=== PATIENT | female | born 1990 | race Caucasian/White ===

== ENCOUNTER 2018-07-02 12:55 | Emergency (ER) | payer MEDICAID, OTHER ==
[2018-07-02 13:29] LABS: Bilirubin Negative (Negative); Blood, Urine Negative (Negative); Clarity CLEAR (Clear); Glucose, Urine (Dipstick) Negative (Negative); Leukocyte Negative (Negative); Nitrite Negative (Negative); Pregnancy Test - Urine (BHCG) POSITIVE (Negative); Protein, Urine (Dipstick) Negative (Neg-Trace); Specific Gravity, Urine 1.018 (1.002-1.036)
[2018-07-02 13:30] LABS: Pregu Control Background? CLEAR/WHITE (CLR/WHITE); Pregu Control Bar Appear? YES (CONTROL BAR); Specific Gravity 1.018 (1.002-1.036)
[2018-07-02 13:39] LABS: #Basophils 0.1 thou/uL (0.0-0.2); #Eosinphils 0.2 thou/uL (0.0-0.7); #Lymphocytes 1.9 thou/uL (1.20-3.40); #Monocytes 0.5 thou/uL (0.11-0.59); %Basophils 0.8 % (0.0-1.0); %Eosinophils 2.4 % (0.0-10.0); %Lymphocytes 19.6 % (21.0-51.0); %Monocytes 5.5 % (0.0-10.0); %Neutrophils 71.7 % (42.0-75.0); Hemoglobin 15.3 g/dL (12.0-16.0); Mean Corpuscular HGB CONC 32.4 g/dL (32.0-36.0); Mean Corpuscular Hemoglobin 30.6 pg (27.0-31.0); Mean Corpuscular Volume 94.3 fL (78.0-98.0); Mean Platelet Volume 8.4 fL (7.4-10.4); Platelet Count 250 thou/uL (130-400); RBC Distribution Width 11.9 % (11.5-14.5); Red Blood Cell (RBC) Count 4.99 mill/uL (4.20-5.40); White Blood Cell (WBC) Count 9.8 thou/uL (4.8-10.8)
--- NOTE | 2018-07-02 14:16 | ULT ---
PELVIC ULTRASOUND: COMPARISON: None. HISTORY: female with vaginal bleeding. TECHNIQUE: Multiplanar, soria scale, and color Doppler images were obtained in a transabdominal and transvaginal pelvic ultrasound. Spectral analysis of the Doppler waveforms was performed. FINDINGS: There is a tiny hypoechoic structure within the endometrium which could represent a very early gestat ional sac. This has a mean sac diameter of 0.51 cm which would estimated gestational age at 5 weeks 2 days. No pole or yolk sac is seen within this possible gestational sac. No free fluid is seen in the pelvis. Both ovaries are normal in size and appearance and demonstrate normal internal flow. A corpus luteum cyst is seen in the right ovary. IMPRESSION: Likely early intrauterine . Recommend following HCG values to ensure that a viable pregnanc y is present. POS: HERIBERTO
== END 2018-07-02 14:35 | disposition home or self-care (01) ==
LOC: ERS 12:55
DX: O20.0 Threatened abortion (principal); O99.331 Smoking (tobacco) complicating pregnancy, first trimester; Z3A.01 Less than 8 weeks gestation of pregnancy
CPT/HCPCS: 36415; 76856; 81003; 81025; 84702; 85025

== ENCOUNTER 2018-07-10 11:35 | Outpatient (CLI) | payer MEDICAID | END 2018-07-10 11:36 | disposition home or self-care (01) | LOC: LAB 11:35 | PROVIDERS: ATTEND Physician Assistant Medical | DX: R19.7 Diarrhea, unspecified (principal) | CPT/HCPCS: 87045; 87046; 87177; 87449; 87899 ==

== ENCOUNTER 2019-07-16 20:28 | Emergency (ER) | payer MEDICAID ==
[2019-07-16 20:53] LABS: #Basophils 0.2 thou/uL (0.0-0.2); #Eosinphils 0.4 thou/uL (0.0-0.7); #Lymphocytes 3.4 thou/uL (1.20-3.40); #Monocytes 0.4 thou/uL (0.11-0.59); #Neutrophils 3.5 thou/uL (1.40-6.50); %Eosinophils 5.3 % (0.0-10.0); %Lymphocytes 43.4 % (21.0-51.0); %Monocytes 4.4 % (0.0-10.0); %Neutrophils 44.8 % (42.0-75.0); Hemoglobin 14.6 g/dL (12.0-16.0); Mean Corpuscular HGB CONC 33.8 g/dL (32.0-36.0); Mean Corpuscular Hemoglobin 32.9 pg (27.0-31.0); Mean Corpuscular Volume 97.3 fL (78.0-98.0); Platelet Count 242 thou/uL (130-400); RBC Distribution Width 12.6 % (11.5-14.5); Red Blood Cell (RBC) Count 4.45 mill/uL (4.20-5.40); White Blood Cell (WBC) Count 7.9 thou/uL (4.8-10.8)
[2019-07-16 21:05] LABS: Bilirubin Negative (Negative); Blood, Urine Negative (Negative); Clarity Clear (Clear); Glucose, Urine (Dipstick) Normal (Negative); Leukocyte Negative Leu/uL (Negative); Nitrite Negative (Negative); Protein, Urine (Dipstick) Negative (Neg-Trace); Urobilinogen Normal mg/dL (Less than 2)
[2019-07-16 21:26] LABS: BHCG - Serum POSITIVE (NEGATIVE); Pregs Control Background? CLEAR/WHITE (CLR/WHITE); Pregs Control Bar Appear? YES (CONTROL BAR)
--- NOTE | 2019-07-16 23:13 | ULT ---
Obstetric sonogram transabdominal imaging with duplex evaluation HISTORY: Pelvic pain. Early . FINDINGS: Urinary bladder is incompletely distended. Gestational sac within the endometrial cavity co ntains a pole correlating with 6 weeks 4 days gestational age. No heart tones visible. Gestational sac size correlates with 8 weeks 1 day. No free fluid in the pelvis. Each ovary has normal appearance and demonstrates good color and spectra l Doppler flow. IMPRESSION: Single intrauterine gestational sac with pole correlating with 6 weeks 4 days gesta tional age. No heart motion demonstrated. Please correlate with expected clinical age and beta hCG levels.
== END 2019-07-16 23:53 | disposition home or self-care (01) ==
LOC: ERS 20:28
DX: O20.0 Threatened abortion (principal); O99.89 Other specified diseases and conditions complicating pregnancy, childbirth and the puerperium; R19.7 Diarrhea, unspecified; Z87.891 Personal history of nicotine dependence; Z3A.01 Less than 8 weeks gestation of pregnancy
CPT/HCPCS: 36415; 76856; 81003; 84702; 84703; 85025; 86850; 86900; 86901

== ENCOUNTER 2019-07-18 20:47 | Emergency (ER) | payer MEDICAID | END 2019-07-18 22:26 | disposition home or self-care (01) | LOC: ERS 20:47 | DX: O03.4 Incomplete spontaneous abortion without complication (principal); Z87.891 Personal history of nicotine dependence | CPT/HCPCS: 99281 ==

== ENCOUNTER 2020-04-15 05:08 | Day surgery (SDC) | payer MEDICAID, OTHER ==
[2020-04-15 05:48] LABS: #Basophils 0.1 thou/uL (0.0-0.2); #Eosinphils 0.3 thou/uL (0.0-0.7); #Lymphocytes 1.8 thou/uL (1.20-3.40); #Monocytes 0.6 thou/uL (0.11-0.59); #Neutrophils 16.4 thou/uL (1.40-6.50); %Basophils 0.3 % (0.0-1.0); %Eosinophils 1.6 % (0.0-10.0); %Lymphocytes 9.3 % (21.0-51.0); %Monocytes 3.1 % (0.0-10.0); %Neutrophils 85.7 % (42.0-75.0); Hemoglobin 15.6 g/dL (12.0-16.0); Mean Corpuscular HGB CONC 33.8 g/dL (32.0-36.0); Mean Corpuscular Hemoglobin 32.2 pg (27.0-31.0); Mean Corpuscular Volume 95.4 fL (78.0-98.0); Mean Platelet Volume 8.7 fL (7.4-10.4); Platelet Count 207 thou/uL (130-400); RBC Distribution Width 11.9 % (11.5-14.5); Red Blood Cell (RBC) Count 4.86 mill/uL (4.20-5.40); White Blood Cell (WBC) Count 19.1 thou/uL (4.8-10.8)
[2020-04-15 06:07] LABS: Bacteria/HPF 1+ HPF (None Seen); Bilirubin Negative (Negative); Blood, Urine 2+ (Negative); Clarity Clear (Clear); Glucose, Urine (Dipstick) Normal (Negative); Ketone, Urine Trace mg/dL (Negative); Leukocyte 500 Leu/uL (Negative); Nitrite Negative (Negative); Protein, Urine (Dipstick) 10 mg/dL (Neg-Trace); Specific Gravity, Urine 1.027 (1.002-1.036); Urobilinogen Normal mg/dL (Less than 2); WBC/HPF 21-50 HPF (0-3); pH, Urine 6.5 (5.0-9.0)
[2020-04-15] MEDS ORDERED: cefTRIAXone\\ROCEPHIN 1 GM VIAL ONE (06:23)
[2020-04-15 07:06] LABS: ALT (SGPT) 10 U/L (8-55); AST (SGOT) 29 U/L (5-34); Alkaline Phosphatase 44 U/L (40-110); Anion Gap 12 mmol/L (10-20); BUN (Urea Nitrogen) 9 mg/dL (7.0-18.7); Bilirubin, Total 0.2 mg/dL (0.2-1.2); Calc. Creatinine Clearance 0 mL/min (70-130); Calcium 7.8 mg/dL (7.8-10.44); Carbon Dioxide 20 mmol/L (22-29); Chloride 108 mmol/L (98-107); Estimated GFR-MDRD Greater than 90; Globulin 3.1 g/dL (2.4-3.5); Glucose 72 mg/dL (70-105); Potassium 4.7 mmol/L (3.5-5.1); Protein, Total 6.1 g/dL (6.0-8.3); Sodium 135 mmol/L (136-145)
[2020-04-15] MEDS ORDERED: Bicitra 30 ML UDCUP ONE (07:32)
[2020-04-15] MEDS ORDERED: Acetaminophen 500 MG TAB PO PRN ×2 (07:40→10:31)
[2020-04-15] MEDS ORDERED: hydrOXYzine Pamoate 25 mg Capsule PO PRN ×2 (07:41→10:36)
[2020-04-15] MEDS ORDERED: Dextrose 5%-Lactated Ringers 1,000 ML IV SCH ×2 (07:45→10:45)
--- NOTE | 2020-04-15 07:47 | ULT ---
PRELIMINARY REPORT/[facility]/EMERGENCY AFTER HOURS PROCEDURE This report was discussed with Melissa Dexter RN by Malcolm Pagan on Apr 15, 2020 06:44:00 RIDDLER OPERATOR. Addendum electronically signed by Malcolm Pagan on April 15, 2020 6:45:01 AM RIDDLER OPERATOR EXAM: US Obstetrical, Complete >14 weeks. CLINICAL HISTORY: HX: VAG BLEEDING, CONTRACTIONS AT 18WKS. TECHNIQUE: Transabdominal imaging of the maternal pelvis and a > 14 week gestation with image documentation. COMPARISON: None provided. FINDINGS: FETUS: There is a single living intrauterine gestation. POSITION: position is vertex. HEART RATE: The heart rate is 149 beats per minute. BIOMETRICS: Based on composite biometry, the estimated gestational age by ultrasound is 18 weeks and 2 days . ANATOMIC SURVEY: The visualized anatomy is unremarkable. PLACENTA: The placenta is located fundal. No sonographic evidence for previa or abruption. AMNIOTIC FLUID: Within normal limits. CERVIX: The cervix appears shortened, measuring up to 1.4 cm in length. IMPRESSION: Single viable intrauterine . The cervix appears shortened, measuring up to 1.4 cm in length. ELECTRONICALLY SIGNED BY: Nancy Ching MD Apr 15, 2020 6:39:17 AM RIDDLER OPERATOR This report is intended for review by the ordering physician only, in accordance of law. If you recei ve this report in error, please call [facility] at [phone]. FINAL REPORT Obstetric sonogram limited 04/15/2020 performed on emergency basis at 0600 hours. HISTORY: Pelvic pain. FINDINGS: Agree with the preliminary report by Dr. Ching from [facility]. Cervix is shortene d at 1.4 cm. Single intrauterine gestation. Estimated gestational age 18 weeks 2 days. Transcribed Date/Time: 04/15/2020 8:27 AM
[2020-04-15] MEDS: Ampicillin/Sulbactam 3 GM in Sodium Chloride 0.9% 100 ML IVPB SCH ×2 (08:18→14:27)
[2020-04-15] MEDS ORDERED: Bupivacaine/Epinephrine 0.25% 30 ML VIAL ONE (09:41)
[2020-04-15] MEDS ORDERED: Ondansetron PF 4 MG/2 ML Vial IVP PRN ×2 (10:31→20:01)
[2020-04-15] MEDS ORDERED: Promethazine HCl 25 MG/ML VIAL IM PRN (10:31)
[2020-04-15] MEDS ORDERED: hydrALAZINE 20 MG/ML VIAL SLOW IVP PRN ×2 (10:31→20:01)
[2020-04-15] MEDS ORDERED: Ampicillin/Sulbactam 3 GM in Sodium Chloride 0.9% 100 ML IVPB SCH (10:45)
[2020-04-15 11:37] LABS: SARS-CoV-2 MS2 Positive; SARS-CoV-2 N Gene Negative; SARS-CoV-2 S Gene Negative; SARS-CoV-2 by NAA Not Detected (NotDetected); SARS-CoV-2 orf1ab Negative
[2020-04-15 11:48] LABS: Hemoglobin 13.3 g/dL (12.0-16.0); Mean Corpuscular HGB CONC 33.4 g/dL (32.0-36.0); Mean Corpuscular Hemoglobin 32.6 pg (27.0-31.0); Mean Corpuscular Volume 97.6 fL (78.0-98.0); Mean Platelet Volume 8.8 fL (7.4-10.4); Platelet Count 186 thou/uL (130-400); RBC Distribution Width 11.9 % (11.5-14.5); Red Blood Cell (RBC) Count 4.07 mill/uL (4.20-5.40); White Blood Cell (WBC) Count 16.7 thou/uL (4.8-10.8)
[2020-04-15 12:31] LABS: HBSAg Index 0.22 S/CO (0-0.99); Hep B Surf Ag Non-Reactive S/CO (NonReactive); Syphilis Antibody Nonreactive (Nonreactive); Syphilis Antibody Index 0.05 S/CO (<1.00 Non-Reactive)
[2020-04-15 15:16] LABS: Amphetamine Not Detected (NotDetected); Barbiturates Screen Not Detected (NotDetected); Benzodiazepine Screen Not Detected (NotDetected); Cocaine Metabolite Screen Not Detected (NotDetected); Medtox Control Line Valid? VALID (VALID); Medtox Reader # READER 1; Methadone Not Detected (NotDetected); Methamphetamine Not Detected (NotDetected); Opiate Screen Not Detected (NotDetected); Oxycodone Screen Not Detected (NotDetected); Phencyclidine (PCP) Not Detected (NotDetected); THC/Cannabinoid Screen Not Detected (NotDetected); Tricyclic Screen Not Detected (NotDetected)
[2020-04-15] MEDS ORDERED: Fentanyl 4 mcg/Bup 0.1% Cadd 100 ML in Premix Bag 1 BAG EPIDURAL SCH (19:00)
[2020-04-15] MEDS ORDERED: Misoprostol 200 MCG TAB ONE (19:41)
[2020-04-15] MEDS ORDERED: NS / Oxytocin 40 units/1000ml 1,000 ML ONE (19:49)
[2020-04-15] MEDS ORDERED: Zolpidem Tartrate 5 MG TAB PO PRN (20:01)
[2020-04-15] MEDS ORDERED: Lanolin Ointment 7 GM TUBE TOP PRN (20:01)
[2020-04-15] MEDS ORDERED: Benzocaine-Menthol 82.5 ML CAN TOP PRN (20:01)
[2020-04-15] MEDS ORDERED: Misoprostol 200 MCG TAB VAG PRN (20:01)
[2020-04-15] MEDS ORDERED: Preparation H Ointment 28 GM TUBE PR PRN (20:01)
[2020-04-15] MEDS ORDERED: Bisacodyl 10 MG SUPP PR PRN (20:01)
[2020-04-15] MEDS ORDERED: diphenhydrAMINE 25 MG CAP PO PRN (20:01)
[2020-04-15] MEDS ORDERED: Acetaminophen 325 MG TAB PO PRN (20:04)
[2020-04-15] MEDS ORDERED: NS / Oxytocin 40 units/1000ml 1,000 ML IV SCH (20:15)
[2020-04-15] MEDS ORDERED: Progesterone,Micronized 100 MG CAP PO SCH (21:00)
[2020-04-15] MEDS ORDERED: Misoprostol 200 MCG TAB PO SCH (21:45)
[2020-04-15] MEDS ORDERED: Ibuprofen 800 MG TAB PO SCH (22:00)
[2020-04-15] MEDS: Misoprostol 200 MCG TAB PO SCH (22:38)
[2020-04-16] MEDS: Ampicillin/Sulbactam 3 GM in Sodium Chloride 0.9% 100 ML IVPB SCH (00:30)
[2020-04-16] MEDS: Misoprostol 200 MCG TAB PO SCH (00:30)
[2020-04-16] MEDS ORDERED: Adacel (T-DAP) 0.5 ML SYRINGE IM ONE (09:00)
[2020-04-16] MEDS ORDERED: Prenatal Vitamin 1 TAB PO SCH (09:00)
== END 2020-04-16 01:07 | disposition home or self-care (01) ==
LOC: ERS 05:08 → L&D/OP 07:29 → L&D 09:44 → L&D/OP 04-16 01:07
PROVIDERS: ATTEND Obstetrics & Gynecology
DX: O03.9 Complete or unspecified spontaneous abortion without complication (principal); Z3A.18 18 weeks gestation of pregnancy; Z87.891 Personal history of nicotine dependence; Z88.5 Allergy status to narcotic agent; Z20.828 Contact with and (suspected) exposure to other viral communicable diseases
CPT/HCPCS: 36415; 76815; 80053; 80306; 81003; 81015; 85025; 86780; 86850; 86900; 86901; 87040; 87086; 87340; 87635; 88305; 96365; 99285; J0295; J0696; J3490; Q0177; U0003

== ENCOUNTER 2025-01-19 10:15 | Outpatient (CLI) | payer OTHER | END 2025-01-19 10:16 | disposition home or self-care (01) | LOC: RAD 10:15 | PROVIDERS: ATTEND Otolaryngology | DX: R13.10 Dysphagia, unspecified (principal); R53.83 Other fatigue | CPT/HCPCS: 74230 ==